=== PATIENT | female | born 1975 | race Hispanic/Latino ===

== ENCOUNTER 2021-01-11 11:33 | Emergency (ER) | payer OTHER, SELFPAY ==
[2021-01-11 11:48] VITALS: BP 124/83; PULSE 71; RESP 19; TEMP 36.6; O2SAT 99
--- NOTE | 2021-01-11 11:57 | ED.UPPEXIN ---
HPI - Extremity Injury (Upper) General Chief Complaint: Wound/Laceration Stated Complaint: LUMP RT 3RD FINGER Time Seen by Provider: 01/11/21 11:57 Source: patient and RN notes reviewed Mode of arrival: ambulatory Limitations: no limitations History of Present Illness HPI narrative: 45-year-old female presents to the [facility] with complaints of mass to the palmar aspect right hand. Patient states that she saw her primary care provider and was placed to be referred to a worm raiser however has not seen one yet. Patient states that the mass has been there for approximately 3 months. Related Data Home Medications Medication Instructions Recorded Confirmed escitalopram oxalate mg 01/11/21 multivitamin with folic acid tablet PO 01/11/21 [Tab-A-Kourtney] omeprazole 01/11/21 sumatriptan succinate mg PO 01/11/21 Allergies Allergy/AdvReac Type Severity Reaction Status Date / Time No Known Allergies Allergy Unverified 12/24/18 18:15 Review of Systems Review of Systems: All systems reviewed & are unremarkable except as noted in HPI and below Constitutional: Constitutional: Reports no additional constitutional complaints, Denies chills and Denies fever(s) Eyes: Eyes: Reports no additional eye complaints ENT: Reports system reviewed and no additional complaints, except as documented Cardiovascular: Cardiovascular: Reports no additional cardiovascular complaints Respiratory: Respiratory: Reports no additional respiratory complaints Musculoskeletal: Musculoskeletal: Reports no additional musculoskeletal complaints Integumentary/Breasts: Skin/Breast: Reports as per HPI Comments: Third finger left hand palmar aspect 1 cm mass, lesion Neurologic: Reports system reviewed and no additional complaints, except as documented Psychiatric: Psychiatric: Reports no additional psychiatric complaints Allergic/Immunologic: Allergic/Immunologic: Reports no additional allergic/immunologic complaints [facility] Past Medical History Medical History (Updated 01/11/21 @ 19:10 by Marilou Pizano) No significant family history Surgical History Surgical History (Updated 01/11/21 @ 19:10 by Marilou Pizano) No significant past surgical history Social History Social History (Updated 01/11/21 @ 19:10 by Marilou Pizano) Living arrangements: with family Gender identity (if verbalized by the patient): Female Comments At the time of my signature, I reviewed and agree with the nursing past medical, surgical, social, and family history. There is no relevant family history pertinent to the patient complaint. Exam Const: General: healthy appearing, no acute distress and alert Nutritional Appearance: well nourished and obese Orientation/consciousness: patient oriented x3 Limitations: no limitations HENMT: Head: normal to inspection Eyes: Conjunctivae: conjunctivae normal Pupils: Equal, round and reactive pupils present Neck: Neck: normal visual inspection, no lymphadenopathy and no meningeal signs Chest: Chest palpation & inspection: normal inspection of the chest Resp: Effort & Inspection: normal respiratory effort Back/Spine/Pelvis: Back: no CVA tenderness Skin: General skin exam: normal color Other: 1 cm mass finger right hand. Palmar aspect. Neuro: General: patient oriented x3, moves all extremities, no meningeal signs and no focal motor deficits Speech: normal speech Gait exam (Neuro): Normal gait present Extrem: General: normal to inspection Psych: Appearance: grossly normal and well kempt Mental Status: mental status grossly normal Affect: normal affect Attitude: cooperative Thought content: Yes Normal thought content present Course Course Emergency Course: Discharge instructions reviewed with patient, as well as provided in writing per nursing staff. The instructions also include specific and strict return/GO TO THE ER as well as f/u information. All questions have been answered, and the patient
== END 2021-01-11 12:16 | disposition home or self-care (01) ==
PROVIDERS: Emergency Provider Nurse Practitioner; PCP Internal Medicine Infectious Disease
DX: L98.9 Disorder of the skin and subcutaneous tissue, unspecified (principal); K21.9 Gastro-esophageal reflux disease without esophagitis
CPT/HCPCS: 99211; G0463

== ENCOUNTER 2021-07-16 09:12 | Observation (INO) | payer OTHER, SELFPAY ==
[2021-07-16] VITALS (31 sets, daily range): BP systolic 113–141; BP diastolic 66–94; PULSE 68–74; RESP 16–18; TEMP 36.6–36.9; O2SAT 98–100
--- NOTE | ~2021-07-16 | CT_ITS ---
EXAMINATION: CT abdomen pelvis w con DATE: 07/16/2021 12:06 INDICATION: Epigastric abdominal pain. Nausea and vomiting. TECHNIQUE: Computed tomography (CT) of the abdomen and pelvis was performed with 100 mL Omnipaque 350 intravenous contrast. Automated exposure control and iterative reconstruction technique were employe d. The dose-length product was 1359.69 mGy-cm. COMPARISON: CT abdomen and pelvis 09/12/2017 FINDINGS: The visualized portions of the lung bases demonstrate minimal atelectasis in the right. The re is a pneumatocele in left lower lobe. No pleural effusion. The heart size is normal. No pericardia l effusion. There is mild intrahepatic biliary duct dilatation. The common bile duct is normal in riley iber. The gallbladder is distended. Gallbladder wall thickening is noted. The spleen, pancreas, adren al glands, and kidneys are normal. There is an intrauterine device in expected position. There are no dilated loops of bowel. The appendix is normal. There are no pathologically enlarged lymph nodes. Th ere is no free intraperitoneal fluid. There is moderate thoracic spondylosis and mild lumbar spondylo sis. There is chronic anterior wedging of multiple thoracic vertebral bodies. IMPRESSION: 1. Distended gallbladder with wall thickening, consistent with acute cholecystitis. 2. Mild intrahepatic bile duct dilatation. Reviewed, dictated and finalized at location A. IMPRESSION: 1. Distended gallbladder with wall thickening, consistent with acute cholecysti tis. 2. Mild intrahepatic bile duct dilatation.
--- NOTE | ~2021-07-16 | XR_ITS ---
EXAMINATION: XR ERCP EXAM DATE: 07/17/2021 12:55 INDICATION: Choledocholithiasis. TECHNIQUE: Fluoroscopy used during XR ERCP performed by Dr. Logan Gallagher MD. Radiologist was no t present for the imaging or procedure. Total fluoroscopic time of 96 seconds. The DAP for this pro cedure was 0.9 mGym2. A total of 4 images sent to PACS from the exam. Comparison is made to prior ex amination from 07/16/2021. FINDINGS: The ampulla of Vater was cannulated and injected. No definite strictures or filling defect s identified on the images available. Correlate with procedure note. IMPRESSION: Fluoroscopy used during XR ERCP. Reviewed, dictated and finalized at location A.
--- NOTE | 2021-07-16 10:09 | PC.NURSE ---
EDP at bedside to assess pt.
--- NOTE | 2021-07-16 10:14 | ED.ABDPAIN ---
HPI - Abdominal Pain General Chief Complaint: Abdominal Pain <GISELA Mckay Last Filed: 07/16/21 14:42> Stated Complaint: abdominal pain <GISELA Mckay Last Filed: 07/16/21 14:42> Time Seen by Provider: 07/16/21 09:53 <GISELA Mckay Last Filed: 07/16/21 14:42> Source: patient <GISELA Mckay Last Filed: 07/16/21 14:42> Mode of arrival: ambulatory <GISELA Mckay Last Filed: 07/16/21 14:42> Limitations: no limitations <GISELA Mckay Last Filed: 07/16/21 14:42> History of Present Illness HPI narrative: Patient is a 45-year-old female, history of cholelithiasis, fatty liver, GERD, and gastritis, who presents the ED with report of epigastric and right upper quadrant abdominal pain. Patient reports the pain has been intermittent for the last 20 years. She last had an episode of pain 1 week ago but states it did not last very long. Her current pain has been present and constant since last Friday. She notes the pain starts in her epigastric region, radiates to her RUQ and to her back between her shoulder blades. She also reports having nausea and vomiting over the weekend, as well as chills. She denies any known fever. No diarrhea, constipation, rectal bleeding. No chest pain, shortness of breath. Patient has tried taking Pepto-Bismol at home for the pain, she has not taken any other pain medicine. Patient takes Omeprazole occasionally. <GISELA Mckay Last Filed: 07/16/21 14:42> Related Data Home Medications: Home Medications Medication Instructions Recorded Confirmed No Home Medications 07/16/21 07/16/21 <GISELA Mckay Last Filed: 07/16/21 14:42> Allergies/Adverse Reactions: Allergies Allergy/AdvReac Type Severity Reaction Status Date / Time aspirin Allergy Gastitis Verified 07/16/21 16:11 butterbur Allergy Unknown Verified 07/16/21 16:11 ibuprofen Allergy Unknown Verified 07/16/21 16:11 <Fior Fulton PA-C - Last Filed: 07/16/21 14:42> Review of Systems Review of Systems: CONSTITUTIONAL: Denies fever, chills, or sweats. CARDIOVASCULAR: Denies chest pain, palpitations, or edema. RESPIRATORY: Denies cough or dyspnea. GASTROINTESTINAL: Reports RUQ/epigastric abdominal pain, nausea, vomiting. Denies diarrhea, constipation. GENITOURINARY: Denies dysuria or hematuria. SKIN: Denies rash or itching. MUSCULOSKELETAL: Reports back pain. Denies joint pain, or myalgia. NEUROLOGIC: Denies headache, numbness, or weakness. <Fior Fulton PA-C - Last Filed: 07/16/21 14:42> All systems reviewed & are unremarkable except as noted in HPI and below <Fior Fulton PA-C - Last Filed: 07/16/21 14:42> [facility] Past Medical History Medical History: Medical History Gastritis GERD (gastroesophageal reflux disease) Hepatic steatosis No significant family history <Fior Fulton PA-C - Last Filed: 07/16/21 14:42> Surgical History Surgical History: Surgical History History of facial surgery History of knee surgery No significant past surgical history <Fior Fulton PA-C - Last Filed: 07/16/21 14:42> Family History Family History: Family History Son Acute myocardial infarction 27 <GISELA Mckay Last Filed: 07/16/21 14:42> Social History Social History: Social History Social History: Code status: Wishes to be a full code. Has an established PCP but cannot recall the name at this time. Wishes for her boyfriend, Esthela De La O, to be her medical-decision maker if needed. Smoking status: Former smoker Tobacco type: cigarettes Alcohol intake: current Drinks per week: 1 Substance use: never Substance use type: does not use Living arrangements:
[2021-07-16 10:44] LABS: Basophils Percent Auto 0.5 % (0.2-1.2); Eosinophils Percent Auto 0.2 % (0-4.4); Hematocrit 39.5 % (37.0-47.0); Hemoglobin 12.4 g/dL (12.0-15.0); Immature Granulocyte Absolute 0.02 K/mm3 (0.00-0.031); Immature Granulocyte Percent A 0.3 % (0-0.5); Lymphocytes Absolute Auto 1.11 K/mm3 (0.9-3.2); Lymphocytes Percent Auto 19.1 % (18.3-44.2); Mean Corpuscular HGB Conc 31.4 g/dl (32-36); Mean Corpuscular Hemoglobin 27.1 pg (26-34); Mean Corpuscular Volume 86.2 fl (80-100); Mean Platelet Volume 10.6 fl (7.4-10.4); Monocytes Absolute Auto 0.5 K/mm3 (0.1-0.6); Monocytes Percent Auto 8.3 % (2.6-8.5); Neutrophils Absolute Auto 4.2 K/mm3 (1.3-6.7); Neutrophils Percent Auto 71.6 % (45.5-73.1); Platelet Count Result 302 k/mm3 (150-375); Red Blood Count 4.58 M/mm3 (4.2-5.4); Red Cell Distribution Width 14.1 % (11.5-14.5); White Blood Count 5.8 K/mm3 (4.5-10.0)
[2021-07-16] MEDS: ONDANSETRON INJ 4 MG/2 ML VIAL IV PUSH (10:49)
[2021-07-16 10:50] LABS: Alanine Aminotransferase 494 U/L (4-35); Albumin Level 4.4 g/dL (3.5-5.1); Alkaline Phosphatase 600 U/L (38-126); Anion Gap 10 mmol/L (8-16); Aspartate Amino Transferase 347 U/L (14-36); Bilirubin,Total 3.4 mg/dL (0.2-1.3); Blood Urea Nitrogen 6 mg/dL (7-17); Calcium 8.9 mg/dL (8.4-10.2); Carbon Dioxide 19 mmol/L (22-30); Chloride 108 mmol/L (98-107); Estimated CRCL calculation 129 ml/min; Estimated Glomerular Filt Rate > 60; Glucose 101 mg/dL (65-110); Lipase 333 U/L (23-300); Sodium 137 mmol/L (137-145)
[2021-07-16] MEDS: SODIUM CHLORIDE 0.9% IV 1,000 ML 999 ML IV CONT (10:50)
[2021-07-16 10:59] LABS: Add Urine Microscopic? YES; Appearance Urine Cloudy (Clear); Bilirubin Urine Negative (Negative); Blood Urine 1+ (Negative); Color Urine Amber (Yellow); Glucose Urine UA Negative (Negative); Ketones Urine Trace mg/dL (Negative); Leukocyte Esterase Ur 2+ LEU/UL (Negative); Nitrate Urine Negative (Negative); Protein Urine Negative (Negative); RBC Urine 0-2 /hpf (0-2); Specific Grav Ur 1.006 (1.001-1.035); Squamous Epithelial Cell Urine Moderate /hpf (Few); Urobilinogen Urine Negative mg/dL (<2.0)
[2021-07-16 11:01] LABS: Troponin I < 0.012 ng/mL (0.000-0.034)
--- NOTE | 2021-07-16 12:05 | PC.NURSE ---
Patient off unit to radiology.
--- NOTE | 2021-07-16 12:20 | ECG_ITS ---
Measurements Intervals [place] Rate: 54 P: 47 NE: 167 QRS: 17 QRSD: 101 T: 17 QT: 418 QTc: 397 Interpretive Statements SINUS BRADYCARDIA NO PREVIOUS ECG AVAILABLE FOR COMPARISON Electronically Signed On 07-17-2021 16:43:57 CDT by Fay Eason M.D.
--- NOTE | 2021-07-16 16:18 | ADMGEN ---
This patient, Sarah Hanson, was admitted to Medical Room 342-01. Patient/family oriented to hospital policies and general routines including ID bracelet, bed and alarms, visiting hours, pain management, procedures, bathroom and other care routines, personal items, smoking policy, room service/diet, and visiting hours. Information on how to activate the Rapid Response Team has been discussed. Patient/Family are encouraged to report perceived risks to care and to ask questions if they do not understand what they are told or what they should do.
--- NOTE | 2021-07-16 16:19 | PM.IMHP ---
H&P: HPI History of Present Illness Date/Time: 07/16/21 16:19 Chief Complaint: Epigastric abdominal pain Narrative: This is a 45-year-old female with a history of GERD and fatty liver, who presented to the ER with complaints of epigastric abdominal pain. She reports about 2 years ago, she was told she has gallstones and was instructed to follow a low fat diet. Over the past few years, she has noticed epigastric abdominal pain that comes intermittently, typically following meals, and resolves spontaneously. These episodes only occur every couple of months. She reports that on Friday, 3 days ago, she had eaten cheese Quesadillas for dinner and developed severe epigastric abdominal pain that woke her in her sleep that night. The pain was sharp and radiated to her mid upper back. She reports that this pain was similar to previous episodes, but more severe. The pain continued into the following day and would wax and wean, but was persistent. She developed nausea and had one episode of vomiting at home. She reports that two nights ago, the pain was so severe that she had three episodes of feeling like she was going to pass out . Today, she also noted that her urine appeared darker than normal. She reports chills but no known fever. Due to the unrelenting pain, she presented to the ER for evaluation. CT scan of the abdomen and pelvis showed gallbladder distention with wall thickening, no visualized cholelithiasis, with mild intrahepatic bile duct dilatation. Labs showed a normal WBC count, total bilirubin 3.4, AST 347, ALT 494, alk phos 600, and lipase 333. Baseline troponin normal. Our service was contacted by the ED provider for possible acute cholecystitis with transaminitis. The patient is now seen in the ER. She reports resolution of her nausea and her abdominal pain has improved with IV Ofirmev. She appears comfortable. She denies any light-colored stools. She denies noticing jaundice. No other complaints at this time. Review of Systems Review of Systems: All systems reviewed & are unremarkable except as noted in HPI and below Constitutional: Constitutional: Reports as per HPI, Reports chills, Denies fatigue and Denies fever(s) Eyes: Eyes: Reports no additional eye complaints and Denies change in vision ENT: Reports system reviewed and no additional complaints, except as documented and Reports Normal hearing present Cardiovascular: Cardiovascular: Reports no additional cardiovascular complaints, Denies chest pain and Denies leg edema Respiratory: Respiratory: Reports no additional respiratory complaints, Denies cough and Denies dyspnea Gastrointestinal: Gastrointestinal: Reports as per HPI, Reports no additional gastrointestinal complaints, Reports abdominal pain, Denies bloating, Denies change in bowel habits, Denies change in stool character, Reports constipation, Denies diarrhea, Denies loose stools, Reports nausea and Reports vomiting Genitourinary: Genitourinary: Reports no additional female genitourinary complaints, Denies hematuria and Denies dysuria Musculoskeletal: Musculoskeletal: Reports no additional musculoskeletal complaints Integumentary/Breasts: Skin/Breast: Denies jaundice Neurologic: Reports system reviewed and no additional complaints, except as documented, Denies dizziness, Denies focal weakness, Denies numbness and Denies tingling PMFSH Past Medical History Medical History Gastritis GERD (gastroesophageal reflux disease) Hepatic steatosis Surgical History Surgical History History of facial surgery History of knee surgery Family History Family History Son Acute myocardial infarction 27 Social History Social History Social History: Code status: Wishes to be a full code. Has an established PCP but
--- NOTE | 2021-07-16 16:33 | WPDGICN ---
Assessment and Plan Assessment and plan (1) Epigastric pain: Code(s): R10.13 - Epigastric pain Status: Acute Assessment and Plan: this severe pain began Friday evening, and is similar to episodes she has had in the past but the others never lasted that long. She was worried she may have an ulcer. She states that she also is known to have gastritis. Will perform an EGD prior to ERCP (2) Acute cholecystitis: Code(s): K81.0 - Acute cholecystitis Status: Acute Assessment and Plan: she has a distended gallbladder consistent with cholecystitis. She is going to be seen by surgery (3) Transaminitis: Code(s): R74.01 - Elevation of levels of liver transaminase levels Status: Acute Assessment and Plan: her elevated transaminases suggest choledocholithiasis (4) Dilated intrahepatic bile duct: Code(s): K83.8 - Other specified diseases of biliary tract Status: Acute Assessment and Plan: I discussed ERCP with the patient. I told her she may have stones and/or sludge in the bile duct and this could be impacting the ampulla. I told her that she does have an elevated lipase consistent with pancreatitis. I discussed with her ERCP. I told her that this will help rule out and or remove any common bile duct stones or sludge. I explained that the procedure does have risks such as bleeding or perforation but also risk of pancreatitis about 2 or 3%. Told her that we take measures to try to reduce the risk of pancreatitis, with vigorous preprocedure hydration and use of rectal anti-inflammatory I zulema her pictures and described the anatomy of the liver, bile ducts, gallbladder and pancreas. (5) Obesity, morbid, BMI 40.0-49.9: Code(s): E66.01 - Morbid (severe) obesity due to excess calories Status: Acute (6) Gastritis: Code(s): K29.70 - Gastritis, unspecified, without bleeding Status: Acute Assessment and Plan: she is concerned that she may have an ulcer. I told her that we will examine her stomach prior to the ERCP to rule out ulcers, gastritis etcetera. GI Consult Note Consult date/time: 07/16/21 16:33 HPI: Sarah Hanson is a 45 year old female Who came to the emergency room today with severe epigastric pain radiating to the back. This began 3 days ago. She has been nauseated and vomiting. She also had chills. She had noticed that her urine was brighter but not necessarily dark. She states that she was told sometime ago that she had a problem with her gallbladder. She was given some medication and was okay for least 10 years. Now for the past several years she has had recurrent attacks of pain usually coming on late at night maybe lasting an hour to an usually subsiding spontaneously. These pains likely when she is having now radiated straight through to her back between her shoulder blades. She has no history of liver disease jaundice or hepatitis. No family history of liver disease. She is found to have a bilirubin of 3.4 and markedly elevated transaminases. CT scan showed thickening of the wall of the gallbladder but no definite stones. She also has some intrahepatic and slight extrahepatic bile duct dilatation. Her lipase is slightly elevated, 300. Review of Systems Review of Systems: All systems reviewed & are unremarkable except as noted in HPI and below PMFSH Past Medical History Medical History Gastritis GERD (gastroesophageal reflux disease) Hepatic steatosis No significant family history Surgical History Surgical History History of facial surgery History of knee surgery No significant past surgical history Family History Family History Son Acute myocardial infarction 27 Social History Social History (Reviewed 07/16/21 @ 16:35 by Michael
[2021-07-16] MEDS: SODIUM CHLORIDE 0.9% IV 1,000 ML 100 ML IV CONT (17:05)
[2021-07-16] MEDS: MORPHINE SULFATE (*CRX) 2 MG/ML INJ IV PUSH (20:19)
[2021-07-17] VITALS (12 sets, daily range): BP systolic 117–145; BP diastolic 67–90; PULSE 60–76; RESP 16–22; TEMP 36–37.1; O2SAT 94–99
[2021-07-17] MEDS: SODIUM CHLORIDE 0.9% IV 1,000 ML 100 ML IV CONT ×3 (03:07→18:29)
[2021-07-17 05:53] LABS: Basophils Percent Auto 0.8 % (0.2-1.2); Eosinophils Absolute Auto 0.1 K/mm3 (0-0.3); Eosinophils Percent Auto 0.9 % (0-4.4); Hematocrit 35.4 % (37.0-47.0); Hemoglobin 11.1 g/dL (12.0-15.0); Immature Granulocyte Absolute 0.02 K/mm3 (0.00-0.031); Immature Granulocyte Percent A 0.4 % (0-0.5); Lymphocytes Absolute Auto 1.72 K/mm3 (0.9-3.2); Lymphocytes Percent Auto 32.4 % (18.3-44.2); Mean Corpuscular HGB Conc 31.4 g/dl (32-36); Mean Corpuscular Hemoglobin 27.3 pg (26-34); Mean Platelet Volume 10.9 fl (7.4-10.4); Monocytes Absolute Auto 0.6 K/mm3 (0.1-0.6); Monocytes Percent Auto 10.5 % (2.6-8.5); Neutrophils Absolute Auto 2.9 K/mm3 (1.3-6.7); Platelet Count Result 266 k/mm3 (150-375); Red Blood Count 4.07 M/mm3 (4.2-5.4); Red Cell Distribution Width 14.2 % (11.5-14.5); White Blood Count 5.3 K/mm3 (4.5-10.0)
[2021-07-17 06:11] LABS: Alanine Aminotransferase 356 U/L (4-35); Albumin Level 3.5 g/dL (3.5-5.1); Alkaline Phosphatase 492 U/L (38-126); Anion Gap 8 mmol/L (8-16); Aspartate Amino Transferase 215 U/L (14-36); Bilirubin,Total 2.6 mg/dL (0.2-1.3); Blood Urea Nitrogen 5 mg/dL (7-17); Calcium 8.1 mg/dL (8.4-10.2); Carbon Dioxide 16 mmol/L (22-30); Chloride 111 mmol/L (98-107); Estimated CRCL calculation 129 ml/min; Estimated Glomerular Filt Rate > 60; Glucose 86 mg/dL (65-110); Lipase 239 U/L (23-300); Potassium 3.6 mmol/L (3.4-5.0); Sodium 135 mmol/L (137-145)
--- NOTE | 2021-07-17 11:16 | WPDANESEPPF ---
Anes - Initial Pre Proc Eval Procedure: Operation Date: 07/17/21 12:00 Proposed Procedures p Endoscopic Retro Cholangiopancreatogram - Logan Gallagher MD Date/Time: 07/17/21 11:16 Surgeon: Jonathan Cevallos DO Pre Op Diagnosis: Acute Cholecystitis Patient Data Age: 45 Gender: F Height: 1.68 m Weight: 113.63 kg Last Vital Signs Temp 98.7 F 07/17/21 06:00 Pulse 76 07/17/21 06:00 Resp 16 07/17/21 06:00 BP 117/67 07/17/21 06:00 Pulse Ox 98 07/17/21 07:55 Allergies Allergy/AdvReac Type Severity Reaction Status Date / Time aspirin Allergy Gastitis Verified 07/17/21 11:11 butterbur Allergy Unknown Verified 07/17/21 11:11 ibuprofen Allergy Unknown Verified 07/17/21 11:11 Home Medications Medication Instructions Recorded Confirmed Type No Home Medications 07/16/21 07/16/21 History Laboratory Tests 07/17/21 07/17/21 05:18 05:18 WBC 5.3 K/mm3 K/mm3 (4.5-10.0) RBC 4.07 M/mm3 L M/mm3 (4.2-5.4) Hgb 11.1 g/dL L g/dL (12.0-15.0) Hct 35.4 % L % (37.0-47.0) MCV 87.0 fl fl (80-100) MCH 27.3 pg pg (26-34) MCHC 31.4 g/dl L g/dl (32-36) RDW 14.2 % % (11.5-14.5) Plt Count 266 k/mm3 k/mm3 (150-375) MPV 10.9 fl H fl (7.4-10.4) Immature Gran % (Auto) 0.4 % % (0-0.5) Neut % (Auto) 55.0 % % (45.5-73.1) Lymph % (Auto) 32.4 % % (18.3-44.2) [place] % (Auto) 10.5 % H % (2.6-8.5) Eos % (Auto) 0.9 % % (0-4.4) Baso % (Auto) 0.8 % % (0.2-1.2) Lymph # (Auto) 1.72 K/mm3 K/mm3 (0.9-3.2) [place] # (Auto) 0.6 K/mm3 K/mm3 (0.1-0.6) Eos # (Auto) 0.1 K/mm3 K/mm3 (0-0.3) Baso # (Auto) 0.0 K/mm3 K/mm3 (0.0-0.1) Abs Immat Gran (auto) 0.02 K/mm3 K/mm3 (0.00-0.031) Absolute Neuts (auto) 2.9 K/mm3 K/mm3 (1.3-6.7) Absolute Nucleated RBC 0.0 K/mm3 K/mm3 (0.0-0.012) Nucleated RBC % 0.0 % % (0.0-0.2) Sodium 135 mmol/L L mmol/L (137-145) Potassium 3.6 mmol/L mmol/L (3.4-5.0) Chloride 111 mmol/L H mmol/L (98-107) Carbon Dioxide 16 mmol/L L mmol/L (22-30) Anion Gap 8 mmol/L mmol/L (8-16) BUN 5 mg/dL L mg/dL (7-17) Creatinine 0.60 mg/dL L mg/dL (0.7-1.0) Estim Creat Clear Calc 129 ml/min ml/min Estimated GFR > 60 (59 - ) Glucose 86 mg/dL mg/dL (65-110) Calcium 8.1 mg/dL L mg/dL (8.4-10.2) Total Bilirubin 2.6 mg/dL H mg/dL (0.2-1.3) AST 215 U/L H U/L (14-36) ALT 356 U/L H U/L (4-35) Alkaline Phosphatase 492 U/L H U/L (38-126) Total Protein 7.0 g/dL g/dL (6.3-8.2) Albumin 3.5 g/dL g/dL (3.5-5.1) Lipase 239 U/L U/L (23-300) Patient hx anesthesia problems: none Family hx anesthesia problems: none Results Review: All pre-operative results and documents have been reviewed as part of the pre-operative evaluation. [facility] Past Medical History Medical History Gastritis GERD (gastroesophageal reflux disease) Hepatic steatosis No significant family history Surgical History Surgical History History of facial surgery History of knee surgery No significant past surgical history Family History Family History Son Acute myocardial infarction 27 Social History Social History Social History: Code status: Wishes to be a full code. Has an established PCP but cannot recall the name at this time. Wishes for her boyfriend, Esthela De La O, to be her medical-decision maker if needed. Smoking status: Former smoker Tobacco type: cigarettes Alcohol intake: current Drinks per week: 1 Substance use: never Substance use type: does not use Li
[2021-07-17] MEDS: LACTATED RINGERS 1,000 ML 150 ML IV CONT (11:19)
--- NOTE | 2021-07-17 11:34 | PM.PNGS ---
Progress Note: A&P Assessment and Plan (1) Acute cholecystitis: Code(s): K81.0 - Acute cholecystitis Status: Acute Assessment and Plan: ERCP today, will await results and schedule cholecystectomy depending on how she progresses. Repeat labs tomorrow. (2) Transaminitis: Code(s): R74.01 - Elevation of levels of liver transaminase levels Status: Acute Assessment and Plan: LFTs down slightly. GI planning ERCP today. Additional Plan I have discussed the plan of care with Dr. Cevallos. Subjective Subjective Date/Time Seen: 07/17/21 10:37 Patient reports: no new complaints, feels better and afebrile Interval history: Patient seen and examined. She denies any abdominal pain this morning. She states that her urine is more tea-colored today. She does report some nausea, but no vomiting. She is currently NPO for ERCP. Review of Systems Review of Systems: All systems reviewed & are unremarkable except as noted in HPI and below Exam Const: General: alert and awake GI: Inspection: non-distended GI Palp: Yes Soft to palpation, Yes Tenderness to palpation present (GI) (mild epigastric ), No Guarding due to palpation present (GI) and No Rebound tenderness present Auscultation: normal bowel sounds Neuro: General: moves all extremities and no focal motor deficits Extrem: General: normal to inspection Psych: Insight: Good insight present (Psych) Judgement: Good judgement present (Psych) Objective Data Vital Signs Vital Signs: Vital Signs - 24 hr 07/16/21 11:50 07/16/21 12:09 07/16/21 12:15 Temperature Pulse Rate Respiratory Rate Blood Pressure Pulse Oximetry 100 100 100 07/16/21 12:30 07/16/21 12:40 07/16/21 12:41 Temperature Pulse Rate Respiratory Rate Blood Pressure 141/86 H Pulse Oximetry 100 100 100 07/16/21 12:46 07/16/21 12:47 07/16/21 13:00 Temperature Pulse Rate Respiratory Rate Blood Pressure 124/75 Pulse Oximetry 100 100 100 07/16/21 13:01 07/16/21 13:15 07/16/21 13:19 Temperature Pulse Rate Respiratory Rate Blood Pressure 113/70 115/80 Pulse Oximetry 100 100 100 07/16/21 13:30 07/16/21 13:31 07/16/21 13:45 Temperature Pulse Rate Respiratory Rate Blood Pressure 141/94 H Pulse Oximetry 100 100 98 07/16/21 13:46 07/16/21 14:01 07/16/21 14:02 Temperature Pulse Rate Respiratory Rate Blood Pressure 140/91 H 138/84 Pulse Oximetry 100 100 100 07/16/21 14:15 07/16/21 14:16 07/16/21 16:53 Temperature 97.8 F Pulse Rate 68 Respiratory Rate 18 Blood Pressure 124/88 139/83 Pulse Oximetry 99 98 99 07/16/21 20:00 07/16/21 22:00 07/17/21 06:00 Temperature 98.5 F 98.7 F Pulse Rate 68 71 76 Respiratory Rate 18 16 16 Blood Pressure 118/73 117/67 Pulse Oximetry 99 100 99 07/17/21 07:55 07/17/21 11:16 Temperature 96.8 F L Pulse Rate 71 Respiratory Rate 20 Blood Pressure 137/86 Pulse Oximetry 98 98 Intake/Output Intake/Output: Intake & Output 07/14/21 07/15/21 07/16/21 07/17/21 23:59 23:59 23:59 23:59 Intake Total 1100 1250 Output Total 0 700 Balance 1100 550 Meds/Results Medications: Active Medications Generic Name Dose Route Start Last Admin Trade Name Freq PRN Reason Stop Dose Admin Sodium Chloride 1,000 mls @ 100 mls/hr 07/16/21 16:20 07/17/21 03:07 Normal Saline Iv IV CONT 100 mls/hr .Q10H RITA Administration Acetaminophen 1,000 mg in 100 mls @ 400 mls/hr 07/16/21 16:20 Ofirmev 1,000 Mg Ivpb IVPB 07/17/21 16:19 Q6H PRN Pain Rated 4-6 Lactated Ringer's 1,000 mls @ 150 mls/hr 07/17/21 11:15 07/17/21 11:19 Lr - Lactated Ringers Iv IV CONT 150 mls/hr .Q6H40M RITA Administration Morphine Sulfate 2 mg 07/16/21 16:20 07/16/21 20:19 Morphine Sulfate (*Crx) 2 Mg/Ml Inj IV PUSH 2 mg Q2H PRN Administration Pain Rated 7-10 Ondansetron HCl 4 mg 07/16/21 14:36 Ondanse
[2021-07-17] MEDS: INDOMETHACIN 50 MG SUPP.RECT 100 MG RECTAL (12:22)
--- NOTE | 2021-07-17 14:13 | SUR.OPER ---
EGD start 1223 end 1226, ERCP start 1230 end 1245.
--- NOTE | 2021-07-17 14:19 | PC.NURSE ---
Returned from GI Lab. Report received from
[2021-07-18] VITALS (14 sets, daily range): BP systolic 97–144; BP diastolic 57–81; PULSE 60–94; RESP 15–18; TEMP 36.3–37.2; O2SAT 96–100
[2021-07-18] MEDS: SODIUM CHLORIDE 0.9% IV 1,000 ML 100 ML IV CONT (04:44)
[2021-07-18 06:10] LABS: Basophils Percent Auto 0.5 % (0.2-1.2); Hematocrit 34.2 % (37.0-47.0); Hemoglobin 10.6 g/dL (12.0-15.0); Immature Granulocyte Absolute 0.01 K/mm3 (0.00-0.031); Immature Granulocyte Percent A 0.2 % (0-0.5); Lymphocytes Absolute Auto 1.35 K/mm3 (0.9-3.2); Lymphocytes Percent Auto 22.6 % (18.3-44.2); Mean Corpuscular Hemoglobin 27.1 pg (26-34); Mean Corpuscular Volume 87.5 fl (80-100); Mean Platelet Volume 10.7 fl (7.4-10.4); Monocytes Absolute Auto 0.5 K/mm3 (0.1-0.6); Neutrophils Absolute Auto 4.1 K/mm3 (1.3-6.7); Neutrophils Percent Auto 67.7 % (45.5-73.1); Platelet Count Result 248 k/mm3 (150-375); Red Blood Count 3.91 M/mm3 (4.2-5.4)
--- NOTE | 2021-07-18 06:15 | WPDGIPROGNO ---
Progress Note: A&P Assessment and Plan (1) Epigastric pain: Code(s): R10.13 - Epigastric pain Status: Acute Assessment and Plan: this severe pain began Friday evening, and is similar to episodes she has had in the past but the others never lasted that long. She was worried she may have an ulcer. She states that she also is known to have gastritis. Will perform an EGD prior to ERCP 06/17 only Arcelia sludge was produced after sphincterotomy and balloon sweep. I believe she is going to have her gallbladder removed today. (2) Acute cholecystitis: Code(s): K81.0 - Acute cholecystitis Status: Acute Assessment and Plan: she has a distended gallbladder consistent with cholecystitis. She is going to be seen by surgery 07/18 Will advance diet, unless having surgery today (3) Transaminitis: Code(s): R74.01 - Elevation of levels of liver transaminase levels Status: Acute Assessment and Plan: her elevated transaminases suggest choledocholithiasis (4) Dilated intrahepatic bile duct: Code(s): K83.8 - Other specified diseases of biliary tract Status: Acute Assessment and Plan: I discussed ERCP with the patient. I told her she may have stones and/or sludge in the bile duct and this could be impacting the ampulla. I told her that she does have an elevated lipase consistent with pancreatitis. I discussed with her ERCP. I told her that this will help rule out and or remove any common bile duct stones or sludge. I explained that the procedure does have risks such as bleeding or perforation but also risk of pancreatitis about 2 or 3%. Told her that we take measures to try to reduce the risk of pancreatitis, with vigorous preprocedure hydration and use of rectal anti-inflammatory I zulema her pictures and described the anatomy of the liver, bile ducts, gallbladder and pancreas. (5) Obesity, morbid, BMI 40.0-49.9: Code(s): E66.01 - Morbid (severe) obesity due to excess calories Status: Acute (6) Gastritis: Code(s): K29.70 - Gastritis, unspecified, without bleeding Status: Acute Assessment and Plan: she is concerned that she may have an ulcer. I told her that we will examine her stomach prior to the ERCP to rule out ulcers, gastritis etcetera. 07/18 EGD was negative for ulcer. Specimen for H pylori was negative Subjective Date/time seen: 07/18/21 06:15 She slept well. She has a little soreness in her throat, possibly due to intubation For ERCP. Her abdominal pain is about the same. She believes that she is going to have her cholecystectomy today. Review of Systems Review of Systems: All systems reviewed & are unremarkable except as noted in HPI and below Exam Const: General: alert Nutritional Appearance: overweight Orientation/consciousness: patient oriented x3 Resp: Auscultation: clear to auscultation bilaterally Cardio: Rhythm: regular rhythm GI: Inspection: normal to inspection GI Palp: Yes Tenderness to palpation present (GI) ( Epigastric area) and Yes No hepatosplenomegaly present Auscultation: normal bowel sounds Neuro: General: patient oriented x3 Objective Data Vital Signs Vital Signs: Vital Signs - 24 hr 07/17/21 07:55 07/17/21 11:16 07/17/21 12:56 Temperature 36.0 C L 36.6 C Pulse Rate 71 74 Respiratory Rate 20 20 Blood Pressure 137/86 125/82 Pulse Oximetry 98 98 95 07/17/21 13:06 07/17/21 13:16 07/17/21 13:26 Temperature Pulse Rate 71 73 65 Respiratory Rate 22 H 22 H 18 Blood Pressure 121/81 134/86 132/90 Pulse Oximetry 94 96 96 07/17/21 13:36 07/17/21 13:46 07/17/21 14:41 Temperature 36.8 C Pulse Rate 64 64 64 Respiratory Rate 19 20 20 Blood Pressure 132/89 125/86 145/86 H Pulse Oximetry 98 98 99 07/17/21 21:08 07/17/21 21:42 07/18/21 04:53 Temperature 36.7 C 37.2 C Pulse Rate 60 68 Respiratory Rate 16 15 Blood Pressure 137/83 125/69 Pulse Oximetry 98 95 98
[2021-07-18 06:23] LABS: Alanine Aminotransferase 303 U/L (4-35); Albumin Level 3.4 g/dL (3.5-5.1); Alkaline Phosphatase 455 U/L (38-126); Anion Gap 7 mmol/L (8-16); Aspartate Amino Transferase 179 U/L (14-36); Blood Urea Nitrogen 5 mg/dL (7-17); Calcium 8.1 mg/dL (8.4-10.2); Carbon Dioxide 17 mmol/L (22-30); Chloride 111 mmol/L (98-107); Estimated CRCL calculation 152 ml/min; Estimated Glomerular Filt Rate > 60; Glucose 94 mg/dL (65-110); Potassium 3.6 mmol/L (3.4-5.0); Sodium 135 mmol/L (137-145)
[2021-07-18] MEDS: LACTATED RINGERS 1,000 ML 30 ML IV CONT ×2 (13:58→16:41)
--- NOTE | 2021-07-18 14:49 | WPDHPUPDATE1 ---
History and Physical Update Update Date/Time: 07/18/21 14:49 History and Physical has been reviewed, including an updated exam of the patient. There are NO changes in the patient's condition. Risks, benefits, and alternatives have been discussed and questions answered. Patient agrees to proceed with procedure.
[2021-07-18] MEDS: ceFAZolin 2 GM/D5W 50 ML 2 GM/50 ML BAG IVPB ×2 (15:11→23:27)
--- NOTE | 2021-07-18 15:16 | WPDANESEFPP ---
Anes - Eval Final PreProcedure Day of Procedure 07/18/21 15:16 Patient weight: morbidly obese Heart: regular rate and rhythm Lungs: clear to auscultation Airway: Mallampati scale class II Neurological: alert and oriented Last oral intake: >/= 8 hours ASA classification: III Emergent: no Anesthetic plan: proceed Anesthesia type and monitoring: general ETT and standard monitoring Results Review: All pre-operative results and documents have been reviewed as part of the pre-operative evaluation. Informed Consent: The patient's anesthetic plan and its attendant risks and benefits were discussed with the patient/family/POA. Questions were solicited and answers provided to the satisfaction of the patient/family/POA.
--- NOTE | 2021-07-18 16:25 | W.PM.PROC2 ---
Procedure Note - Detailed Date of Procedure 07/18/21 Pre-op Diagnosis Acute Cholecystitis Post-op Diagnosis Same Procedure Performed Laparoscopic Cholecystectomy Surgeon Jonathan Cevallos, DO Anesthesia General and Local (0.5% bupivacaine) Indications This is a 45-year-old woman who presented to the emergency department on 07/16/2021 with upper abdominal pain that had been going on for the past 2 days. She has had frequent attacks like this in the past but not this severe. She was told she had gallstones several years ago. She did try a gallbladder cleanse about 1 or 2 years ago which involved drinking all of oil and grapefruit juice and taking several enemas. In the emergency department she was noted to have gallbladder wall thickening on the CT as well as intrahepatic and extrahepatic biliary duct dilatation. Her liver enzymes were significantly elevated. She underwent ERCP by Dr. Gallagher on 07/17/2021. Discussions were made with the patient about treatment options and decision was made to proceed with laparoscopic cholecystectomy, possible open. Findings Laparoscopic cholecystectomy was performed. The gallbladder did have evidence of acute inflammation with gallbladder wall thickening and hyperemia. The cystic duct was slightly enlarged but no palpable stones were noted within the lumen. Within the lumen of the gallbladder there were thousands of small BB-sized gallstones. The gallbladder was removed and sent to the lab for pathology. There was some bleeding along the liver bed from the inflammation and hyperemia. Surgiflo was sprayed along the gallbladder fossa after the gallbladder was removed and irrigation was performed. Description of Procedure Procedure as well as risks, benefits, and alternatives were discussed with patient. Written consent was obtained and placed in chart prior to procedure. The patient was brought back to surgical suite. Patient was placed in supine position on operating table. Time-out was done to confirm patient and procedure. Patient was then intubated by the anesthesia department. Abdomen was prepped and draped in sterile fashion using chlorhexidine prep. 0.5% bupivacaine with epinephrine was infiltrated at each site of incision. A 5 millimeter incision was made near the umbilicus, and a 5 millimeter Optiview trocar was advanced through the abdominal layers under direct visualization. Once inside the abdominal cavity, carbon dioxide was insufflated to create a pneumoperitoneum. The camera was inserted and the abdomen was inspected. No immediate abnormalities were identified. The patient was placed in reverse Trendelenburg position and rotated slightly to the left. An 11 millimeter incision was made in the subxiphoid region, and an 11 millimeter trocar was inserted under direct visualization. Two 5 millimeter incisions were made in the right upper quadrant, and two 5 millimeter trocars were inserted under direct visualization. The gallbladder was identified and grasped at the fundus and retracted superiorly. It was then grasped at the infundibulum retracted laterally. Careful dissection around the neck of the gallbladder was performed using blunt dissection with a [place] grasper and hook electrocautery. The cystic duct was identified, and a window was created behind it. The cystic artery was also identified and a window was created behind it. The critical view of safety was identified, visualizing the cystic duct running directly into the neck of the gallbladder, and the cystic artery running directly into the wall of the gallbladder. A 5 millimeter clip peer educator was then used to place 2 clips proximally and 1 clip distally on both the cystic duct and cystic artery. They were then both transected using endoscopic scissors. Once safely away from the sander hepatitis, the gallbladder was dissected free from the liver bed using hook electrocautery. Hemostasis was achieved along the way. The gallbladder was remov
[2021-07-18] MEDS: fentaNYL CITRATE INJ (*CRX) 100 MCG/2 ML VIAL 25 MCG IV PUSH ×2 (16:52→17:04)
[2021-07-18] MEDS: HYDROcodone/acetaminophen (*CRX) 10-325 MG TABLET 1 TAB PO (19:45)
[2021-07-19] MEDS: HYDROcodone/acetaminophen (*CRX) 10-325 MG TABLET 1 TAB PO ×3 (01:18→11:55)
[2021-07-19 05:34] LABS: Hematocrit 36.7 % (37.0-47.0); Hemoglobin 11.5 g/dL (12.0-15.0); Mean Corpuscular HGB Conc 31.3 g/dl (32-36); Mean Corpuscular Hemoglobin 27.3 pg (26-34); Mean Corpuscular Volume 87.2 fl (80-100); Mean Platelet Volume 10.5 fl (7.4-10.4); Platelet Count Result 283 k/mm3 (150-375); Red Blood Count 4.21 M/mm3 (4.2-5.4); Red Cell Distribution Width 14.2 % (11.5-14.5); White Blood Count 9.8 K/mm3 (4.5-10.0)
[2021-07-19 05:42] VITALS: BP 143/91; PULSE 69; RESP 18; TEMP 36.2; O2SAT 98
[2021-07-19 05:46] LABS: Alanine Aminotransferase 298 U/L (4-35); Albumin Level 3.9 g/dL (3.5-5.1); Alkaline Phosphatase 471 U/L (38-126); Anion Gap 10 mmol/L (8-16); Aspartate Amino Transferase 157 U/L (14-36); Blood Urea Nitrogen 3 mg/dL (7-17); Calcium 8.7 mg/dL (8.4-10.2); Carbon Dioxide 18 mmol/L (22-30); Chloride 107 mmol/L (98-107); Estimated CRCL calculation 152 ml/min; Estimated Glomerular Filt Rate > 60; Glucose 104 mg/dL (65-110); Potassium 3.8 mmol/L (3.4-5.0); Sodium 135 mmol/L (137-145)
[2021-07-19] MEDS: ceFAZolin 2 GM/D5W 50 ML 2 GM/50 ML BAG IVPB ×2 (06:18→14:09)
[2021-07-19 08:00] VITALS: PULSE 69; RESP 18; O2SAT 98
--- NOTE | 2021-07-19 11:53 | PM.DS ---
DS: Admitting Diagnosis Discharge Date 07/19/21 Admitting Diagnosis Acute cholecystitis Transaminitis Dilated intrahepatic duct Hepatic steatosis GERD Obesity BMI 40 DS: Discharge Diagnosis Discharge Diagnosis (1) Acute cholecystitis: Code(s): K81.0 - Acute cholecystitis Status: Acute Assessment and Plan: 07/18/21 - Laparoscopic cholecystectomy - by Dr. Cevallos (2) Transaminitis: Code(s): R74.01 - Elevation of levels of liver transaminase levels Status: Acute Assessment and Plan: 07/17/21 - EGD/ERCP - by Dr. Gallagher (3) Dilated intrahepatic bile duct: Code(s): K83.8 - Other specified diseases of biliary tract Status: Acute (4) Hepatic steatosis: Code(s): K76.0 - Fatty (change of) liver, not elsewhere classified Status: Acute Assessment and Plan: Stable. Follow-up with PCP. Recommend following a low fat diet and making lifestyle changes to promote weight loss. (5) GERD (gastroesophageal reflux disease): Code(s): K21.9 - Gastro-esophageal reflux disease without esophagitis Status: Acute Assessment and Plan: Stable. No complaints of reflux or heartburn. Tolerating a low fat diet. F/u with PCP. (6) Obesity, morbid, BMI 40.0-49.9: Code(s): E66.01 - Morbid (severe) obesity due to excess calories Status: Acute Assessment and Plan: Recommend following a low fat diet and making lifestyle changes to promote weight loss. DS: Summary Hospital Course Reason for hospitalization: This is a 45-year-old female with a history of GERD and fatty liver, who presented to the ER with complaints of epigastric abdominal pain x 3 days. She has had a couple episodes in the past and was told previously that she had gallstones. She presented to the ER for evaluation. Workup in the ER showed LFT's and bilirubin elevated, and CT showed dilated gallbladder with intra/extra hepatic biliary dilation. Our service was contacted by the ED provider for possible acute cholecystitis with transaminitis and she was admitted in this setting. Hospital Course: GI was consulted and decided to proceed with an ERCP and EGD on 07/17/21. EGD was normal. ERCP with sphincterotomy with findings of small sand like material at the distal common bile duct that was removed with balloon sweep and sphincterotomy. She tolerated the procedure well. WBC was normal on admission and remained normal. She was only treated with pre-operative IV antibiotics prior to the cholecystectomy. Labs were monitored and her LFTs have come down after ERCP. She did have a barely elevated lipase at 333 on admission, which came down to normal the following day. Could have had some element of mild acute biliary pancreatitis. The patient was then scheduled for a laparoscopic cholecstectomy with Dr. Cevallos on 07/18/21. She had evidence of acute inflammation in surgery. She was recovered and returned to the medical floor. Her diet has been advanced to low fat, which she is tolerating well. Her pain is well controlled with oral analgesics. She is doing well this morning, tolerating activity, tolerating a diet, and stable for discharge. Status at Discharge Functional status at discharge: independent ambulation Overall status at discharge: patient is progressing back to baseline Time Spent with Patient Time attestation: Total time spent providing and/or coordinating discharge services: Time spent: Less than 30 minutes Exam Const: General: comfortable, no acute distress, alert and awake Nutritional Appearance: average body habitus Orientation/consciousness: patient oriented x3 Resp: Effort & Inspection: no respiratory distress Auscultation: clear to auscultation bilaterally Cardio: Rate: regular rate Rhythm: regular rhythm Heart sounds: S1 normal heart sound present and S2 normal heart sound present GI: Inspection: non-distended and incision (incisions clean and dry, glue intact) GI Palp: Yes Soft to palpatio
[2021-07-19 13:15] VITALS: BP 140/89; PULSE 70; RESP 20; TEMP 36.2; O2SAT 98
== END 2021-07-19 16:30 | disposition home or self-care (01) ==
LOC: ANHED 14:42 → ANH3MED 15:30
PROVIDERS: Internal Medicine Gastroenterology; Nurse Practitioner Family; Physician Assistant; Admitting Provider Surgery; Emergency Provider Emergency Medicine; PCP Internal Medicine Infectious Disease; Visit Provider Surgery
PROC: (CPT 43260; principal; 2021-07-17 12:00)
PROC: 0FT44ZZ Resection of Gallbladder, Percutaneous Endoscopic Approach (ICD-10-PCS; CPT 47562; principal; 2021-07-18 14:30)
DX: K80.12 Calculus of gallbladder with acute and chronic cholecystitis without obstruction (principal); R74.01 Elevation of levels of liver transaminase levels; K83.8 Other specified diseases of biliary tract; K29.70 Gastritis, unspecified, without bleeding; K21.9 Gastro-esophageal reflux disease without esophagitis; K76.0 Fatty (change of) liver, not elsewhere classified; Z87.891 Personal history of nicotine dependence; E66.01 Morbid (severe) obesity due to excess calories; Z68.41 Body mass index [BMI] 40.0-44.9, adult
CPT/HCPCS: 43239; 47562; 36415; 74177; 74329; 80053; 81001; 81025; 83690; 84484; 85025; 85027; 87081; 88304; 93005; 96361; 96365; 96375; 99285; A9270; G0378; G0379; J0131; J0330; J0690; J1100; J1610; J2250; J2270; J2405; J2704; J2710; J3010; J7030; J7120; Q9967

== ENCOUNTER 2022-05-30 11:10 | Emergency (ER) | payer OTHER, SELFPAY ==
--- NOTE | ~2022-05-30 | CT_ITS ---
EXAMINATION: CT abdomen pelvis w con DATE: 05/30/2022 15:19 INDICATION: Right lower quadrant abdominal pain which worsens with movement. TECHNIQUE: Computed tomography (CT) of the abdomen and pelvis was performed with 100 mL Omnipaque-350 intravenous contrast. Automated exposure control and iterative reconstruction technique were employe d. The dose-length product was 1497.59 mGy-cm. COMPARISON: CT dated 07/16/2021 and 09/12/2017 FINDINGS: Lung bases are clear. Small pneumatocele versus bulla at the medial basilar left lower lobe. Arch siz e is normal. No pericardial or pleural effusion. Mild intra and extrahepatic biliary ductal dilation which is within normal limits post cholecystectomy with surgical clips gallbladder fossa. Spleen, baez creas, bilateral adrenal glands and kidneys are normal. There are few scattered colonic diverticula w ithout adjacent inflammatory change to suggest appendicitis. Small bowel and appendix are normal. Ciro dder and right adnexa are unremarkable. 1.5 cm left adnexal cyst/follicle. IUD in expected position w ithin the anteverted uterus. 2 cm hypoenhancing 3.6 x 2.1 cm subserosal fibroid at the posterior uter ine fundus. Trace amount of likely physiologic free fluid in the cul-de-sac. No abscess or free intra peritoneal gas. No pathologically enlarged abdominal or pelvic lymphadenopathy. Chronic mild anterior wedging of a few lower thoracic vertebral bodies. IMPRESSION: 1. No acute intra-abdominal/pelvic process. 2. Mild intra and extra hepatic biliary ductal dilation which is within normal limits post cholecyste ctomy but could consider correlation with liver function tests. 3. 3.6 cm uterine fibroid and IUD in expected position. Reviewed, dictated and finalized at location A. PROCESSING [employer] IMPRESSION: 1. No acute intra-abdominal/pelvic process. 2. Mild intra and extra hepatic biliary ductal dilation which is within normal limits post cholecystectomy but could consider correlation with liver function tests. 3. 3.6 cm uterine fibroid and IUD in expected position.
[2022-05-30 11:47] VITALS: BP 141/79; PULSE 70; RESP 16; TEMP 36.8; O2SAT 100
[2022-05-30 12:28] LABS: Appearance Urine Clear (Clear); Bilirubin Urine Negative (Negative); Blood Urine 2+ (Negative); Color Urine Yellow (Yellow); Glucose Urine UA Negative (Negative); Ketones Urine Negative (Negative); Leukocyte Esterase Ur 1+ LEU/UL (Negative); Nitrate Urine Negative (Negative); Protein Urine Negative (Negative); Specific Grav Ur <= 1.005 (1.001-1.035); Urobilinogen Urine 0.2 mg/dL (<2.0); pH Urine 5.5 (5.0-9.0)
[2022-05-30 12:28] LABS: Basophils Percent Auto 0.5 % (0.2-1.2); Eosinophils Percent Auto 0.1 % (0-4.4); Hematocrit 39.1 % (37.0-47.0); Hemoglobin 12.5 g/dL (12.0-15.0); Immature Granulocyte Absolute 0.02 K/mm3 (0.00-0.031); Immature Granulocyte Percent A 0.3 % (0-0.5); Lymphocytes Absolute Auto 1.98 K/mm3 (0.9-3.2); Lymphocytes Percent Auto 27.1 % (18.3-44.2); Mean Corpuscular Hemoglobin 27.4 pg (26-34); Mean Corpuscular Volume 85.6 fl (80-100); Mean Platelet Volume 9.9 fl (7.4-10.4); Monocytes Absolute Auto 0.5 K/mm3 (0.1-0.6); Monocytes Percent Auto 7.4 % (2.6-8.5); Neutrophils Absolute Auto 4.7 K/mm3 (1.3-6.7); Neutrophils Percent Auto 64.6 % (45.5-73.1); Platelet Count Result 300 k/mm3 (150-375); Red Blood Count 4.57 M/mm3 (4.2-5.4); Red Cell Distribution Width 13.3 % (11.5-14.5); White Blood Count 7.3 K/mm3 (4.5-10.0)
[2022-05-30 12:32] LABS: Bacteria Urine Trace /hpf; Mucus Urine Rare /lpf; RBC Urine 0-2 /hpf (0-2); Squamous Epithelial Cell Urine Few /hpf (Few); WBC Urine 0-3 /hpf
[2022-05-30 12:33] LABS: Add Urine Microscopic? YES
[2022-05-30 12:38] LABS: Alanine Aminotransferase 23 U/L (6-35); Albumin Level 4.5 g/dL (3.5-5.1); Alkaline Phosphatase 139 U/L (38-126); Anion Gap 7 mmol/L (8-16); Aspartate Amino Transferase 22 U/L (14-36); Bilirubin,Total 0.4 mg/dL (0.2-1.3); Blood Urea Nitrogen 9 mg/dL (7-17); Calcium 8.9 mg/dL (8.4-10.2); Carbon Dioxide 25 mmol/L (22-30); Chloride 104 mmol/L (98-107); Estimated CRCL calculation 113 ml/min; Estimated Glomerular Filt Rate > 60; Glucose 91 mg/dL (65-110); Lipase 80 U/L (23-300); Potassium 3.9 mmol/L (3.4-5.0); Sodium 136 mmol/L (137-145)
--- NOTE | 2022-05-30 14:53 | ED.ABDPAIN ---
HPI - Abdominal Pain General Chief Complaint: Abdominal Pain Stated Complaint: abdominal pain X2 weeks Time Seen by Provider: 05/30/22 14:21 History of Present Illness HPI narrative: 46-year-old female with history of cholecystitis status postcholecystectomy here for evaluation of right-sided abdominal pain for the past week. Patient states the pain is severe in nature, coming and going in waves, describes as a sharp shooting sensation. Worse with certain positions. Has not attempted any medicine for pain. Reports a mild cough. Denies fevers, chills, nausea or vomiting, diarrhea or constipation. Related Data Home Medications Medication Instructions Recorded Confirmed No Home Medications 07/16/21 08/02/21 Allergies Allergy/AdvReac Type Severity Reaction Status Date / Time aspirin Allergy Gastitis Verified 05/30/22 11:11 butterbur Allergy Unknown Verified 05/30/22 11:11 ibuprofen Allergy Unknown Verified 05/30/22 11:11 Review of Systems Review of Systems: Gen.: Denies fevers or chills Eyes: Denies eye pain or visual change ENT: Denies congestion Respiratory: Denies shortness of breath or cough CV: Denies chest pain or palpitations GI: Reports right upper quadrant abdominal pain denies burning, urgency, frequency or hematuria Musculoskeletal: Denies back pain or muscle pain Neuro: Denies numbness, tingling, weakness or focal weakness Skin: Denies rash Except as documented, all other systems reviewed and negative [facility] Past Medical History Medical History Gastritis GERD (gastroesophageal reflux disease) Hepatic steatosis Surgical History Surgical History History of facial surgery History of knee surgery Hx laparoscopic cholecystectomy 07/18/21 Family History Family History Son Acute myocardial infarction 27 Social History Social History Social History: Code status: Wishes to be a full code. Has an established PCP but cannot recall the name at this time. Wishes for her boyfriend, Esthela De La O, to be her medical-decision maker if needed. Smoking status: Former smoker Tobacco type: cigarettes Alcohol intake: current Drinks per week: 1 Substance use: never Substance use type: does not use Living arrangements: with family Additional living arrangements comments: Has 3 children. Lives with her 5 year old daughter. Occupation/Education: occupation Additional occupation/education comments: Works for a [employer] company. Gender identity (if verbalized by the patient): Female Spiritual care concerns: No Exam Narrative: APPEARANCE: Well appearing, no pain in distress, well-nourished. Head: Normocephalic and atraumatic. EYES: PERRLA/EOMI, conjunctivae clear NOSE: No nasal drainage EARS: External ear normal in appearance THROAT: Oropharynx is clear. Mucous membranes are moist. NECK: Supple. No adenopathy, no masses. RESPIRATORY: Airway patent, respirations nonlabored. Clear to auscultation bilaterally, no rales, rhonchi, wheezing. CARDIOVASCULAR: Regular rate and rhythm without murmurs, rubs, or gallops. ABDOMINAL: Tender to palpation in the right upper quadrant underlying the anterior rib line. Normoactive bowel sounds. MUSCULOSKELETAL: Extremities are warm and well-perfused. Moves all extremities well. No edema. NEURO: Normal speech. No focal neurologic deficits. SKIN: No rashes or redness in area of pain. Skin is warm and dry. No rashes. PSYCHIATRIC: Normal affect/mood. Course Vital Signs Vital signs: Vital Signs Temperature 98.2 F 05/30/22 11:47 Pulse Rate 70 05/30/22 11:47 Respiratory Rate 16 05/30/22 11:47 Blood Pressure 141/79 H 05/30/22 11:47 Pulse Oximetry 100 05/30/22 11:47 Oxygen Delivery Room Air
[2022-05-30] MEDS: MORPHINE SULFATE (*CRX) 4 MG/ML INJ IV PUSH (15:02)
[2022-05-30 16:00] VITALS: BP 142/88; PULSE 86; RESP 14; O2SAT 97
== END 2022-05-30 16:05 | disposition home or self-care (01) ==
PROVIDERS: Emergency Medicine; Emergency Provider Physician Assistant; PCP Internal Medicine Infectious Disease
DX: R10.11 Right upper quadrant pain (principal); K21.9 Gastro-esophageal reflux disease without esophagitis; Z87.891 Personal history of nicotine dependence; D25.9 Leiomyoma of uterus, unspecified; Z97.5 Presence of (intrauterine) contraceptive device
CPT/HCPCS: 36415; 74177; 80053; 81001; 81025; 83690; 85025; 96374; 99284; J2270; Q9967

== ENCOUNTER 2022-11-17 13:16 | Emergency (ER) | payer OTHER, SELFPAY | END 2022-11-17 13:47 | disposition home or self-care (01) | PROVIDERS: Emergency Provider Registered Nurse; PCP Internal Medicine Infectious Disease | DX: H60.91 Unspecified otitis externa, right ear (principal) | CPT/HCPCS: 99213; G0463 ==

== ENCOUNTER 2023-02-05 11:03 | Emergency (ER) | payer OTHER, SELFPAY ==
--- NOTE | 2023-02-05 11:05 | ED.URI ---
HPI - URI/Sore Throat General Chief Complaint: Upper Respiratory Infection Stated Complaint: Sinus Time Seen by Provider: 02/05/23 11:05 Source: patient Mode of arrival: ambulatory Limitations: no limitations History of Present Illness HPI Narrative: Patient is a 47-year-old female who presents with 3 days of nausea, vomiting and diarrhea. Patient also reports abdominal cramping. Sore throat and sinus pressure started yesterday. Patient has not been able to take any medication due to vomiting. Denies any other fever, ear pain, congestion, cough. Reports daughter had similar symptoms prior to the start of hers. Related Data Allergies Allergy/AdvReac Type Severity Reaction Status Date / Time aspirin Allergy Gastitis Verified 05/30/22 11:11 butterbur Allergy Unknown Verified 05/30/22 11:11 ibuprofen Allergy Unknown Verified 05/30/22 11:11 Review of Systems Review of Systems: All systems reviewed & are unremarkable except as noted in HPI and below Constitutional: Constitutional: Reports body ache(s), Denies chills, Denies fatigue, Denies fever(s), Denies headache(s), Denies malaise and Denies weakness Eyes: Eyes: Denies blurry vision, Denies itchy eyes and Denies loss of vision ENT: Denies otalgia, Denies headache(s), Denies nasal congestion, Denies sinus pain, Reports sinus pressure and Reports sore throat Cardiovascular: Cardiovascular: Denies chest pain, Denies irregular heart rhythm and Denies dyspnea Respiratory: Respiratory: Denies cough and Denies dyspnea Gastrointestinal: Gastrointestinal: Denies abdominal pain, Reports diarrhea, Reports nausea and Reports vomiting Musculoskeletal: Musculoskeletal: Denies back pain, Denies myalgias and Denies arthralgias Integumentary/Breasts: Skin/Breast: Denies pruritus and Denies rash Neurologic: Denies headache(s), Denies loss of vision and Denies weakness Psychiatric: Psychiatric: Reports no additional psychiatric complaints Endocrine: Endocrine: Denies fatigue Allergic/Immunologic: Allergic/Immunologic: Denies itchy eyes PMFSH Past Medical History Medical History Gastritis GERD (gastroesophageal reflux disease) Hepatic steatosis Surgical History Surgical History History of facial surgery History of knee surgery Hx laparoscopic cholecystectomy 07/18/21 Family History Family History Son Acute myocardial infarction 27 Social History Social History Social History: Code status: Wishes to be a full code. Has an established PCP but cannot recall the name at this time. Wishes for her boyfriend, Esthela De La O, to be her medical-decision maker if needed. Smoking status: Former smoker Tobacco type: cigarettes Alcohol intake: current Drinks per week: 1 Substance use: never Substance use type: does not use Living arrangements: with family Additional living arrangements comments: Has 3 children. Lives with her 5 year old daughter. Occupation/Education: occupation Additional occupation/education comments: Works for a [employer]. Gender identity (if verbalized by the patient): Female Spiritual care concerns: No Comments At time of signature, agree with nursing past medical, surgical, social and family history. There is no relevant family history pertinent to the presenting complaint. Exam Const: General: cooperative, healthy appearing, comfortable, no acute distress and well nourished Nutritional Appearance: well nourished Orientation/consciousness: patient oriented x3 Limitations: no limitations HENMT: Head: normal to inspection, normocephalic and atraumatic Ears: hearing grossly normal bilaterally, external ears normal, TM's normal bilaterally, EAC's normal and no periauricular adenopathy Face/Nose/Sin
[2023-02-05 11:18] VITALS: BP 130/93; PULSE 92; RESP 16; TEMP 37.9; O2SAT 98
== END 2023-02-05 12:33 | disposition home or self-care (01) ==
PROVIDERS: Emergency Provider Nurse Practitioner Family; PCP Internal Medicine Infectious Disease
DX: K52.9 Noninfective gastroenteritis and colitis, unspecified (principal); Z20.822 Contact with and (suspected) exposure to COVID-19; Z87.891 Personal history of nicotine dependence; K21.9 Gastro-esophageal reflux disease without esophagitis; K76.0 Fatty (change of) liver, not elsewhere classified
CPT/HCPCS: 87081; 87426; 87804; 87880; 99213; C9803; G0463